=== PATIENT | male | born 1980 | race Caucasian/White ===

== ENCOUNTER 2017-02-22 11:24 | Emergency (ER) | payer SELFPAY ==
[2017-02-22] MEDS ORDERED: Lidocaine 2% PF* 10 ML AMP INJ ONE (11:35)
[2017-02-22] MEDS ORDERED: Lidocaine 1%* 5 ML VIAL INJ ONE (11:37)
[2017-02-22 12:13] VITALS: BP 139/80
--- NOTE | 2017-02-22 12:26 | ED ---
Laceration/Wound HPI - HPI Summary HPI Summary: Patient presents with laceration to the left forearm with a utility knife 1 hour prior to arrival. Tetanus is UTD as of 2 year ago. He was attempting to cut his pants, when the knife slipped. NAD and 0/10 pain. The area is approx 4cm in length, 1cm in width and superficial. Minimal bleeding. Denies health problems, blood thinners or medications. Smoker. Family hx non-contributory. Denies any other symptoms including CASTRO, chest pain or SOB. - History of Current Complaint Stated Complaint: ARM LACERATION Time Seen by Provider: 02/22/17 11:32 Hx Obtained From: Patient Mechanism of Injury: Sharp/Blunt Trauma Onset/Duration: Sudden Onset Aggravating: Nothing Alleviating: Nothing Onset Severity: Mild Current Severity: None Pain Intensity: 0 Pain Scale Used: 0-10 Numeric Associated Signs & Symptoms: Negative - Allergy/Home Medications Allergies/Adverse Reactions: Allergies Allergy/AdvReac Type Severity Reaction Status Date / Time Penicillins Allergy Rash Verified 02/22/17 11:29 PMH/Surg Hx/FS Hx/Imm Hx Previously Healthy: Yes - Immunization History Hx Pertussis Vaccination: No Immunizations Up to Date: Unable to Obtain/Confirm Infectious Disease History: No Infectious Disease History: Denies: Traveled Outside the [place] in Last 30 Days - Social History Occupation: Employed Full-time Lives: With Family Alcohol Use: Weekly Hx Substance Use: No Substance Use Type: Reports: None Hx Tobacco Use: Yes Smoking Status (MU): Light Every Day Tobacco Smoker Review of Systems Constitutional: Negative Eyes: Negative Cardiovascular: Negative Respiratory: Negative Positive: see HPI Musculoskeletal: Negative Positive: Other Neurological: Negative Psychological: Normal All Other Systems Reviewed And Are Negative: Yes Physical Exam Triage Information Reviewed: Yes Vital Signs On Initial Exam: Initial Vitals Temp Pulse Resp BP Pulse Ox 97.5 F 98 17 130/81 96 02/22/17 11:26 02/22/17 11:26 02/22/17 11:26 02/22/17 11:26 02/22/17 11:26 Vital Signs Reviewed: Yes Appearance: Positive: Well-Appearing, Well-Nourished Skin: Positive: Warm, Skin Color Reflects Adequate Perfusion Head/Face: Positive: Normal Head/Face Inspection Eyes: Positive: Normal, STEVEN, Conjunctiva Clear Neck: Positive: Supple, Nontender, No Lymphadenopathy Respiratory/Lung Sounds: Positive: Clear to Auscultation, Breath Sounds Present Cardiovascular: Positive: Normal, RRR, Pulses are Symmetrical in both Upper and Lower Extremities Musculoskeletal: Positive: Normal, Strength/ROM Intact Neurological: Positive: Speech Normal Psychiatric: Positive: Normal Procedures - Laceration/Wound Repair 1 Location: upper extremity Description: Linear Anesthesia: Local, 1.0% Length, Depth and Shape: 4cm, 2cm, linear Betadine Prep?: No Irrigated w/ Saline (ccs): 60 Laceration/Wound Explored: clean Closure: Single Layer Debridement: none Suture Type: Prolene Number of Sutures: 7 Layer Closure?: No Sterile Dressing Applied?: No Diagnostics - Vital Signs Vital Signs Temp Pulse Resp BP Pulse Ox 02/22/17 12:14 98.8 F 85 18 139/80 02/22/17 11:36 98.8 F 85 18 139/80 100 02/22/17 11:26 97.5 F 98 17 130/81 96 - Laboratory Lab Statement: Any lab studies that have been ordered have been reviewed, and results considered in the medical decision making process. Laceration Repair Course/Dx - Course Course Of Treatment: Timeout obtained. Cleansed wound. Irrigated with 60CC's normal saline. Lidocaine without epi as local anesthetic - 1ml. 4-0 non- absorbable prolene. 6 sutures placed using simple interrupted technique. Patient tolerated well. Cleaned and dressed wound with telfa dressing. NV exam WNL. Sutures out in 7 days. Return precautions given. Patient OK with discharge. VS stable. - Differential Dx Differental Diagnoses: Avulsion, Laceration, Tendon Laceration - Clinical Impression Provider Diagnoses: Laceration of wrist Discharge - Discharge Plan Condition: Stable Disposition: HOME Patient Education Materials: Care For Your Stitches (ED), Laceration (ED) Referrals: Non Staff,Doctor [Primary Care Provider] - Additional Instructions: If you develop redness, streaks of red around the wound, swelling, abnormal drainage or you develop a fever - you need to come back to the ED right away. Suture removal in 7 days. Continue to keep covered x 24 hours, then leave open to air.
== END 2017-02-22 12:25 | disposition home or self-care (01) ==
LOC: ED 11:24
DX: S51.812A Laceration without foreign body of left forearm, initial encounter (principal); S61.512A Laceration without foreign body of left wrist, initial encounter; W26.0XXA Contact with knife, initial encounter; Y93.9 Activity, unspecified; Y92.9 Unspecified place or not applicable
CPT/HCPCS: 12002; 96374; 99281; J2001